=== PATIENT | male | born 1980 | race Two or more races ===

== ENCOUNTER → 2017-06-19 | Outpatient (CLI) | payer OTHER ==
--- NOTE | 2017-06-19 18:10 | US ---
EXAMINATION TYPE: US thyroid st tissue head/neck DATE OF EXAM: 06/19/2017 COMPARISON: NONE CLINICAL HISTORY: E04.9 Nontoxic Goiter. Pt stats Dr may have felt thyroid enlargement GLAND SIZE: Right Lobe: 5.2 x 2.0 x 1.6 cm Overall Parenchyma: homogenous Left Lobe: 4.4 x 1.5 x 1.6 cm Overall Parenchyma: homogeneous Isthmus Thickness: 0.2 cm Thyroid appeared wnl, small lymph nodes bilateral lateral neck. IMPRESSION: Right thyroid lobe is larger than the left. No discrete solid or cystic mass. No dominant mass.
--- NOTE | 2017-06-19 18:56 | XR ---
EXAMINATION TYPE: XR knee complete RT DATE OF EXAM: 06/19/2017 COMPARISON: NONE HISTORY: Knee pain TECHNIQUE: 3 views FINDINGS: I see no fracture nor dislocation. Joint spaces are normal. There is no sign of any joint e ffusion. IMPRESSION: Negative right knee exam.
--- NOTE | 2017-06-19 18:57 | XR ---
EXAMINATION TYPE: XR lumbar spine 2 or 3V DATE OF EXAM: 06/19/2017 COMPARISON: NONE HISTORY: Back pain TECHNIQUE: 3 views FINDINGS: I see no fracture nor dislocation. Lumbar vertebra have normal alignment. Disc spaces overa ll are fairly normal. There is narrowing at L5-S1 disc space. Sacroiliac joints appear normal. 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 IMPRESSION: There is some spondylosis at L5-S1. No fracture.
== END | disposition home or self-care (01) ==
LOC: RADUSWWP 16:52
PROVIDERS: ATTEND Family Medicine
DX: M47.817 Spondylosis without myelopathy or radiculopathy, lumbosacral region (principal); E04.9 Nontoxic goiter, unspecified; M25.561 Pain in right knee; Z82.49 Family history of ischemic heart disease and other diseases of the circulatory system
CPT/HCPCS: 72100; 76536; 93005

== ENCOUNTER → 2019-01-14 | Outpatient (CLI) | payer OTHER ==
--- NOTE | 2019-01-14 22:50 | XR ---
EXAMINATION TYPE: XR chest 2V DATE OF EXAM: 01/14/2019 COMPARISON: NONE HISTORY: Cough and bronchitis for 2 weeks. TECHNIQUE: Frontal and lateral views of the chest are obtained. FINDINGS: There is no focal air space opacity, pleural effusion, or pneumothorax seen. The cardiac silhouette size is within normal limits. The osseous structures are intact. IMPRESSION: No suspicious acute pulmonary process.
== END | disposition home or self-care (01) ==
LOC: RADXRMAIN 14:28
PROVIDERS: ATTEND Family Medicine
DX: R05 Cough (principal)
CPT/HCPCS: 71046

== ENCOUNTER 2019-06-21 13:21 | Inpatient (IN) | payer OTHER ==
[2019-06-21] MEDS ORDERED: ACETAMINOPHEN TAB 325 MG TAB PO STA ×2 (13:28→13:53)
--- NOTE | 2019-06-21 13:51 | XR ---
EXAMINATION TYPE: XR chest 2V DATE OF EXAM: 06/21/2019 HISTORY: fever, cough. REFERENCE: Previous study dated 01/14/2019. FINDINGS: There is a vague infiltrate in the right middle lobe. This may represent a developing pneum onia. The left lung is clear. Pleural space are clear. The heart is not enlarged. IMPRESSION: DEVELOPING RIGHT MIDDLE LOBE INFILTRATE.
[2019-06-21] MEDS ORDERED: cefTRIAXone IN SWFI 1,000 MG/10 ML SYRINGE IVP STA (13:58)
[2019-06-21] MEDS ORDERED: NALOXONE 0.4 MG/ML 1 ML VIAL IV PRN (14:04)
[2019-06-21] MEDS ORDERED: VANCOMYCIN IV PER PHARMACY 1 EACH MISC MISCELLANE PRN (14:04)
[2019-06-21] MEDS ORDERED: SODIUM CHLORIDE 0.9% 2,000 ML IV ONE (14:06)
[2019-06-21] MEDS ORDERED: VANCOMYCIN 1,500 MG in SODIUM CHLORIDE 0.9% 250 ML IVPB STA (14:10)
[2019-06-21] MEDS ORDERED: AZITHROMYCIN 500 MG in SODIUM CHLORIDE 0.9% 250 ML IVPB STA (14:17)
--- NOTE | 2019-06-21 14:20 | ED ---
Fever HPI - General Source: patient Mode of arrival: ambulatory Limitations: no limitations <Santa Landaverde - Last Filed: 06/21/19 15:06> <Addie Duran - Last Filed: 06/22/19 23:39> - General Chief Complaint: Fever Stated Complaint: body aches, fever Time Seen by Provider: 06/21/19 13:27 - History of Present Illness Initial Comments: 39-year-old male with past medical history presenting today for chief complaint of cough fever and body aches. Patient states that his is currently being admitted for multilobar pneumonia. Patient states he has had symptoms since Sunday. He states he feels acutely is getting worse not better. Patient states his cough has been progressively getting worse he states he does not really have shortness of breath he denies any chest pain like swelling he states he has occasional headache denies any neck stiffness or photophobia. Patient denies any nausea vomiting diarrhea abdominal pain. Patient denies any rashes. Patient denies any other complaints. Denies history of splenectomy. (Santa Landaverde) - Related Data Home Medications Medication Instructions Recorded Confirmed No Known Home Medications 06/21/19 06/21/19 Allergies Allergy/AdvReac Type Severity Reaction Status Date / Time No Known Allergies Allergy Verified 06/21/19 14:42 Review of Systems ROS Other: All systems not noted in ROS Statement are negative. <Santa Landaverde - Last Filed: 06/21/19 15:06> ROS Other: All systems not noted in ROS Statement are negative. <Addie Duran - Last Filed: 06/22/19 23:39> ROS Statement: Those systems with pertinent positive or pertinent negative responses have been documented in the HPI. Past Medical History Past Medical History: No Reported History History of Any Multi-Drug Resistant Organisms: None Reported Past Surgical History: No Surgical Hx Reported Past Psychological History: No Psychological Hx Reported Smoking Status: Current every day smoker Past Alcohol Use History: Occasional Past Drug Use History: None Reported <Santa Landaverde - Last Filed: 06/21/19 15:06> General Exam Limitations: no limitations <Santa Landaverde - Last Filed: 06/21/19 15:06> - General Exam Comments Initial Comments: General: The patient is awake and alert, in no distress Eye: +3 mm pupils are equal, round and reactive to light, extra-ocular movements are intact. No nystagmus. There is normal conjunctiva bilaterally. No signs of icterus. No photophobia Ears, nose, mouth and throat: There are moist mucous membranes and no oral lesions. Oropharynx was not erythematous there is no tonsillar enlargement exudates or lesions. Uvula midline. Tympanic membranes are not erythematous or is no effusions bulging or retraction. No tenderness to palpation of the mastoid. No anterior cervical lymphadenopathy. Rhinorrhea, clear and bilateral nares. No tripoding, no drooling. Neck: The neck is supple, there is no tenderness or JVD. No nuchal rigidity Cardiovascular: There is a regular rate and rhythm. No murmur, rub or gallop is appreciated. Respiratory: Lungs are clear to auscultation, respirations are non-labored, breath sounds are equal. No wheezes, stridor, rales, or rhonchi. No retractions or abdominal breathing. Gastrointestinal: Soft, non-distended, non-tender abdomen without masses or organomegaly noted. There is no rebound or guarding present. Bowel sounds are unremarkable. Musculoskeletal: Normal ROM, no tenderness. Strength 5/5. Sensation intact. Radial pulses equal bilaterally 2+. Neurological: A&O x 3. CN II-XII intact grossly, There are no obvious motor or sensory deficits. Coordination appears grossly intact. Speech appears normal, no muffling. Skin: Skin is warm and dry and no rashes or lesions are noted. No extremity edema Psychiatric: Cooperative (Santa Landaverde) Course Vital Signs 06/21/19 06/21/19 06/21/19 13:23 13:44 13:45 Temperature 98.5 F Pulse Rate 104 H Respiratory 18 16 18 Rate Blood Pressure 119/73 O2 Sat by Pulse 98 Oximetry 06/21/19 14:30 Temperature 99.9 F H Pulse Rate 92 Respiratory 16 Rate Blood Pressure 108/73 O2 Sat by Pulse 95 Oximetry Medical Decision Making - Lab Data Result diagrams: 06/21/19 14:25 06/21/19 14:25 <Santa Landaverde - Last Filed: 06/21/19 15:06> - Lab Data Result diagrams: 06/22/19 05:32 06/22/19 05:32 <Addie Duran - Last Filed: 06/22/19 23:39> - Medical Decision Making 39-year-old male presenting today for chief complaint of cough, fevers, body aches, Influenza A +. With right middle lobe infiltrate on CXR. Patient arrives with elevated heart rate but does not appear toxic. Blood cultures pending. Patient's laboratory studies reveal no leukocytosis, mild decrease platlets which may reflex viral nature of disease. Patient does not appear nor complain of shortness of breath. Patient given rocephin, azithromycin and vancomycin in ER. Further antibiotics regime to be determined by the admitting provider, who spoke with Dr. Duran. (Santa Landaverde) I was available for consultation in the emergency department. The history and physical exam were done by the midlevel provider. I was consulted for this patients care. I reviewed the case with the midlevel provider and based on their presentation of the patient, I agree with the assessment, medical decision making and plan of care as documented. I evaluated the patient myself and agree to hospital admission given patient is influenza A positive with pneumonia Chart was dictated using Trun[employer] dictation software. Attempts were made to myrna ect any dictation errors however some typographical errors may persist. (Addie Duran) - Lab Data Lab Results 06/21/19 06/21/19 06/21/19 Range/Units 13:40 14:25 14:25 WBC 5.3 (3.8-10.6) k/uL RBC 4.13 L (4.30-5.90) m/uL Hgb 13.8 (13.0-17.5) gm/dL Hct 41.6 (39.0-53.0) % MCV 100.7 H (80.0-100.0) fL MCH 33.4 (25.0-35.0) pg MCHC 33.2 (31.0-37.0) g/dL RDW 12.3 (11.5-15.5) % Plt Count 146 L (150-450) k/uL Neutrophils % 63 % Lymphocytes % 28 % Monocytes % 5 % Eosinophils % 3 % Basophils % 0 % Neutrophils # 3.3 (1.3-7.7) k/uL Lymphocytes # 1.5 (1.0-4.8) k/uL Monocytes # 0.3 (0-1.0) k/uL Eosinophils # 0.1 (0-0.7) k/uL Basophils # 0.0 (0-0.2) k/uL Sodium 136 L (137-145) mmol/L Potassium 4.1 (3.5-5.1) mmol/L Chloride 105 (98-107) mmol/L Carbon Dioxide 23 (22-30) mmol/L Anion Gap 8 mmol/L BUN 14 (9-20) mg/dL Creatinine 0.66 (0.66-1.25) mg/dL Est GFR (CKD-EPI)AfAm >90 (>60 ml/min/1.73 sqM) Est GFR (CKD-EPI)NonAf >90 (>60 ml/min/1.73 sqM) Glucose 95 (74-99) mg/dL Plasma Lactic Acid Zen (0.7-2.0) mmol/L Calcium 9.0 (8.4-10.2) mg/dL Total Bilirubin 0.4 (0.2-1.3) mg/dL AST 24 (17-59) U/L ALT 27 (4-49) U/L Alkaline Phosphatase 52 (38-126) U/L Total Protein 7.0 (6.3-8.2) g/dL Albumin 4.3 (3.5-5.0) g/dL Influenza Type A RNA Detected H (Not Detectd) Influenza Type B (PCR) Not Detected (Not Detectd) 06/21/19 Range/Units 14:25 WBC (3.8-10.6) k/uL RBC (4.30-5.90) m/uL Hgb (13.0-17.5) gm/dL Hct (39.0-53.0) % MCV (80.0-100.0) fL MCH (25.0-35.0) pg MCHC (31.0-37.0) g/dL RDW (11.5-15.5) % Plt Count (150-450) k/uL Neutrophils % % Lymphocytes % % Monocytes % % Eosinophils % % Basophils % % Neutrophils # (1.3-7.7) k/uL Lymphocytes # (1.0-4.8) k/uL Monocytes # (0-1.0) k/uL Eosinophils # (0-0.7) k/uL Basophils # (0-0.2) k/uL Sodium (137-145) mmol/L Potassium (3.5-5.1) mmol/L Chloride (98-107) mmol/L Carbon Dioxide (22-30) mmol/L Anion Gap mmol/L BUN (9-20) mg/dL Creatinine (0.66-1.25) mg/dL Est GFR (CKD-EPI)AfAm (>60 ml/min/1.73 sqM) Est GFR (CKD-EPI)NonAf (>60 ml/min/1.73 sqM) Glucose (74-99) mg/dL Plasma Lactic Acid Zen 0.7 (0.7-2.0) mmol/L Calcium (8.4-10.2) mg/dL Total Bilirubin (0.2-1.3) mg/dL AST (17-59) U/L ALT (4-49) U/L Alkaline Phosphatase (38-126) U/L Total Protein (6.3-8.2) g/dL Albumin (3.5-5.0) g/dL Influenza Type A RNA (Not Detectd) Influenza Type B (PCR) (Not Detectd) Disposition Is patient prescribed a controlled substance at d/c from ED?: No Time of Disposition: 14:30 <Santa Landaverde - Last Filed: 06/21/19 15:06> <Addie Duran - Last Filed: 06/22/19 23:39> Clinical Impression: Influenza A, Pneumonia Disposition: ADMITTED IP TO THIS HOSP Condition: Stable
[2019-06-21 14:42] LABS: Basophils % (A) 0 %; Eosinophils # (A) 0.1 k/uL (0-0.7); Eosinophils % (A) 3 %; HCT 41.6 % (39.0-53.0); HGB 13.8 gm/dL (13.0-17.5); Lymphocytes # (A) 1.5 k/uL (1.0-4.8); Lymphocytes % (A) 28 %; MCH 33.4 pg (25.0-35.0); MCHC 33.2 g/dL (31.0-37.0); MCV 100.7 fL (80.0-100.0); Mean Platelet Volume 8.1; Monocytes # (A) 0.3 k/uL (0-1.0); Monocytes % (A) 5 %; Neutrophils # (A) 3.3 k/uL (1.3-7.7); Neutrophils % (A) 63 %; Platelet Count 146 k/uL (150-450); RBC 4.13 m/uL (4.30-5.90); RDW 12.3 % (11.5-15.5); WBC 5.3 k/uL (3.8-10.6)
[2019-06-21 14:50] LABS: ALT 27 U/L (4-49); AST 24 U/L (17-59); African American GFR (CKD) >90 (>60 ml/min/1.73 sqM); Albumin 4.3 g/dL (3.5-5.0); Alkaline Phosphatase 52 U/L (38-126); Anion Gap 8 mmol/L; Blood Urea Nitrogen 14 mg/dL (9-20); Carbon Dioxide 23 mmol/L (22-30); Chloride 105 mmol/L (98-107); Glucose 95 mg/dL (74-99); Non-African American GFR(CKD) >90 (>60 ml/min/1.73 sqM); Potassium 4.1 mmol/L (3.5-5.1); Sodium 136 mmol/L (137-145); Total Bilirubin 0.4 mg/dL (0.2-1.3)
[2019-06-21] MEDS ORDERED: SODIUM CHLORIDE 0.9% 500 ML 500 ML IV ONE (15:20)
--- NOTE | 2019-06-21 16:42 | P.HPIM ---
History of Present Illness This is a pleasant 39 years old male with no significant past medical history. His patient of Dr. Giles, he presents with dry coughing with some dyspnea , associated with right side lower chest pain on coughing only felt like sharp, no other chest pain , no fever or malaise he smokes about 1/2 PPD , with no alcohol or illicit drugs Patient has fever of 99.9, as her vitals looks stable, Showing normal seal 5.3K, platelets 146, with 15.8, influenza A is positive. Chest x-ray showed right middle lobe infiltrate In the emergency room he was started on vancomycin and Zithromax and ceftriaxone, he was started on normal saline at 100 mL per hour B/2.5 L given as below Review of Systems CONSTITUTIONAL: No fever, no malaise, no fatigue. HEENT: No recent visual problems or hearing problems. Denied any sore throat. CARDIOVASCULAR: No orthopnea, PND, no palpitations, no syncope. PULMONARY: no hemoptysis. GASTROINTESTINAL: No diarrhea, no nausea, no vomiting, no abdominal pain. Normoactive bowel sounds. NEUROLOGICAL: No headaches, no weakness, no numbness. HEMATOLOGICAL: Denies any bleeding or petechiae. GENITOURINARY: Denies any burning micturition, frequency, or urgency. MUSCULOSKELETAL/RHEUMATOLOGICAL: Denies any joint pain, swelling, or any muscle pain. ENDOCRINE: Denies any polyuria or polydipsia. Past Medical History Past Medical History: No Reported History History of Any Multi-Drug Resistant Organisms: None Reported Past Surgical History: No Surgical Hx Reported Past Psychological History: No Psychological Hx Reported Smoking Status: Current every day smoker Past Alcohol Use History: Occasional Past Drug Use History: None Reported - Past Family History Father Family Medical History: Myocardial Infarction ([place]) Additional Family Medical History / Comment(s): 2016 from [place] Mother History Unknown: Yes Additional Family Medical History / Comment(s): heart issues Medications and Allergies Home Medications Medication Instructions Recorded Confirmed Type No Known Home Medications 06/21/19 06/21/19 History Allergies Allergy/AdvReac Type Severity Reaction Status Date / Time No Known Allergies Allergy Verified 06/21/19 14:42 Physical Exam Vitals: Vital Signs Temp Pulse Resp BP Pulse Ox 06/21/19 14:30 99.9 F H 92 16 108/73 95 06/21/19 13:45 18 06/21/19 13:44 16 06/21/19 13:23 98.5 F 104 H 18 119/73 98 Intake and Output 06/20/19 06/21/19 06/21/19 22:59 06:59 14:59 Other: Weight 79.379 kg GENERAL: The patient is alert and oriented x3, not in any acute distress. Well developed, well nourished. HEENT: Pupils are round and equally reacting to light. EOMI. No scleral icterus. No conjunctival pallor. Normocephalic, atraumatic. No pharyngeal erythema. No thyromegaly. CARDIOVASCULAR: S1 and S2 present. No murmurs, rubs, or gallops. PULMONARY: Chest is clear to auscultation, no wheezing or crackles. ABDOMEN: Soft, nontender, nondistended, normoactive bowel sounds. No palpable organomegaly. MUSCULOSKELETAL: No joint swelling or deformity. EXTREMITIES: No cyanosis, clubbing, or pedal edema. NEUROLOGICAL: Gross neurological examination did not reveal any focal deficits. SKIN: No rashes. Results CBC & Chem 7: 06/21/19 14:25 06/21/19 14:25 Labs: Abnormal Lab Results - Last 24 Hours (Table) 06/21/19 Range/Units 13:40 Influenza Type A RNA Detected H (Not Detectd) Assessment and Plan Assessment: Acute influenza infection Right middle lobe community acquired pneumonia Dehydration Plan: This is a pleasant 39 years old male who presents with influenza and right pneumonia. Continue with antibiotics with Rocephin and Zithromax, continue with Tamiflu, continue with bronchodilator. Pulmonary consult Labs and medication were reviewed.. Continue same treatment. Continue with symptomatic treatment. Resume home medication. Monitor lytes and vitals. DVT and GI prophylaxis. Further recommendations of the clinical course of the patient DVT prophylaxis: Subcutaneous heparin GI Prophylaxis: Pepcid PT/OT: Pending Prognosis is guarded
[2019-06-21] MEDS: SODIUM CHLORIDE 0.9% 1,000 ML IV SCH (17:02)
[2019-06-21] MEDS ORDERED: IBUPROFEN 600 MG TAB PO PRN (17:45)
[2019-06-21] MEDS: FAMOTIDINE 20 MG/2 ML VIAL IV SCH (20:08)
[2019-06-21] MEDS: HEPARIN SODIUM,PORCINE 5,000 UNIT/ML 1 ML VIAL SQ SCH (20:08)
[2019-06-21] MEDS ORDERED: IBUPROFEN 600 MG TAB PO SCH (22:00)
[2019-06-21] MEDS: VANCOMYCIN 1,500 MG in SODIUM CHLORIDE 0.9% 250 ML IVPB SCH (23:58)
[2019-06-22] MEDS: SODIUM CHLORIDE 0.9% 1,000 ML IV SCH ×3 (00:16→21:48)
[2019-06-22 06:11] LABS: Basophils % (A) 1 %; Eosinophils # (A) 0.1 k/uL (0-0.7); Eosinophils % (A) 3 %; HCT 41.3 % (39.0-53.0); HGB 13.5 gm/dL (13.0-17.5); Lymphocytes # (A) 1.7 k/uL (1.0-4.8); Lymphocytes % (A) 45 %; MCH 33.5 pg (25.0-35.0); MCHC 32.7 g/dL (31.0-37.0); MCV 102.6 fL (80.0-100.0); Macrocytosis Slight; Monocytes # (A) 0.2 k/uL (0-1.0); Monocytes % (A) 6 %; Neutrophils # (A) 1.6 k/uL (1.3-7.7); Neutrophils % (A) 42 %; Platelet Count 153 k/uL (150-450); RBC 4.02 m/uL (4.30-5.90); RDW 12.4 % (11.5-15.5); WBC 3.8 k/uL (3.8-10.6)
[2019-06-22 06:27] LABS: African American GFR (CKD) >90 (>60 ml/min/1.73 sqM); Anion Gap 5 mmol/L; Blood Urea Nitrogen 12 mg/dL (9-20); Calcium 8.2 mg/dL (8.4-10.2); Carbon Dioxide 23 mmol/L (22-30); Chloride 111 mmol/L (98-107); Glucose 108 mg/dL (74-99); Non-African American GFR(CKD) >90 (>60 ml/min/1.73 sqM); Potassium 4.2 mmol/L (3.5-5.1); Sodium 139 mmol/L (137-145)
[2019-06-22] MEDS: FAMOTIDINE 20 MG/2 ML VIAL IV SCH (08:22)
[2019-06-22] MEDS: HEPARIN SODIUM,PORCINE 5,000 UNIT/ML 1 ML VIAL SQ SCH ×2 (08:22→21:51)
[2019-06-22] MEDS: VANCOMYCIN 1,500 MG in SODIUM CHLORIDE 0.9% 250 ML IVPB SCH (08:23)
--- NOTE | 2019-06-22 11:57 | P.PN ---
Subjective This is a pleasant 39 years old male with no significant past medical history. His patient of Dr. Giles, he presents with dry coughing with some dyspnea , associated with right side lower chest pain on coughing only felt like sharp, no other chest pain , no fever or malaise he smokes about 1/2 PPD , with no alcohol or illicit drugs Patient has fever of 99.9, as her vitals looks stable, Showing normal seal 5.3K, platelets 146, with 15.8, influenza A is positive. Chest x-ray showed right middle lobe infiltrate In the emergency room he was started on vancomycin and Zithromax and ceftriaxone, he was started on normal saline at 100 mL per hour B/2.5 L given as below 06/22/2019 Patient is doing well with minimal symptoms, his cough and fatigue are significantly improved, no chest pain or dyspnea Hemodynamically stable, his CBC and BMP are unremarkable Patient remains on IV vancomycin with ID team on consult Objective - Vital Signs Vital signs: Vital Signs Temp 98.2 F 06/22/19 07:00 Pulse 84 06/22/19 07:00 Resp 18 06/22/19 07:00 BP 112/77 06/22/19 07:00 Pulse Ox 96 06/22/19 07:00 Intake & Output 06/21/19 06/22/19 06/22/19 18:59 06:59 18:59 Intake Total 20 Balance 20 Weight 79.379 kg Intake: Oral 20 Other: Voiding Method Toilet # Voids 1 - Exam GENERAL: The patient is alert and oriented x3, not in any acute distress. Well developed, well nourished. HEENT: Pupils are round and equally reacting to light. EOMI. No scleral icterus. No conjunctival pallor. Normocephalic, atraumatic. No pharyngeal erythema. No thyromegaly. CARDIOVASCULAR: S1 and S2 present. No murmurs, rubs, or gallops. PULMONARY: Chest is clear to auscultation, no wheezing or crackles. ABDOMEN: Soft, nontender, nondistended, normoactive bowel sounds. No palpable organomegaly. MUSCULOSKELETAL: No joint swelling or deformity. EXTREMITIES: No cyanosis, clubbing, or pedal edema. NEUROLOGICAL: Gross neurological examination did not reveal any focal deficits. SKIN: No rashes. no petechiae. - Labs CBC & Chem 7: 06/22/19 05:32 06/22/19 05:32 Labs: Abnormal Lab Results - Last 24 Hours (Table) 06/21/19 06/21/19 06/21/19 Range/Units 13:40 14:25 14:25 RBC 4.13 L (4.30-5.90) m/uL MCV 100.7 H (80.0-100.0) fL Plt Count 146 L (150-450) k/uL Sodium 136 L (137-145) mmol/L Chloride (98-107) mmol/L Glucose (74-99) mg/dL Calcium (8.4-10.2) mg/dL Influenza Type A RNA Detected H (Not Detectd) 06/22/19 06/22/19 Range/Units 05:32 05:32 RBC 4.02 L (4.30-5.90) m/uL MCV 102.6 H (80.0-100.0) fL Plt Count (150-450) k/uL Sodium (137-145) mmol/L Chloride 111 H (98-107) mmol/L Glucose 108 H (74-99) mg/dL Calcium 8.2 L (8.4-10.2) mg/dL Influenza Type A RNA (Not Detectd)
[2019-06-22] MEDS: AZITHROMYCIN 250 MG TAB PO SCH (15:33)
[2019-06-22] MEDS: FAMOTIDINE 20 MG TAB PO SCH (21:51)
--- NOTE | 2019-06-22 22:25 | P.CONS ---
History of Present Illness - Reason for Consult Consult date: 06/22/19 flu and pneumonia Requesting physician: Syd E Sheet - Chief Complaint cough and body aches x 3 days - History of Present Illness Patient is 39-year male presenting to the ER at [facility] with chief complaints of fever and cough along with body aches patient symptoms started on Sunday that is 3 days prior to presentation to hospital started with weakness generalized body aches he did have some sore throat also with shortness of breath and a cough which has been mild to moderate intensity with occasional sputum production denies significant pleuritic chest pain he did have fever and chills although did not wish temperature denies having nausea no vomiting no choking on food no abdominal pain no diarrhea with the symptom the patient presented to hospital on arrival to the ER patient had temperature of 99.9 patient white count was normal liver enzymes normal influenza A positive patient also have a chest x-ray which shows developing right middle lobe infiltrate patient was started on Rocephin and Zithromax vancomycin was added patient has been admitted to the hospital infectious disease was consulted for further recommendation about antibiotic therapy Review of Systems positive point has been mentioned in HPI rest of the systems are negative. Past Medical History Past Medical History: No Reported History History of Any Multi-Drug Resistant Organisms: None Reported Past Surgical History: No Surgical Hx Reported Additional Past Surgical History / Comment(s): hernia surgery as a child Past Anesthesia/Blood Transfusion Reactions: No Reported Reaction Past Psychological History: No Psychological Hx Reported Smoking Status: Current every day smoker Past Alcohol Use History: Occasional Past Drug Use History: None Reported - Past Family History Father Family Medical History: Myocardial Infarction ([place]) Additional Family Medical History / Comment(s): 2016 from [place] Mother History Unknown: Yes Additional Family Medical History / Comment(s): heart issues Medications and Allergies Home Medications Medication Instructions Recorded Confirmed Type No Known Home Medications 06/21/19 06/21/19 History Allergies Allergy/AdvReac Type Severity Reaction Status Date / Time No Known Allergies Allergy Verified 06/21/19 14:42 Physical Exam Vitals: Vital Signs Temp Pulse Pulse Resp BP BP Pulse Ox 06/22/19 07:00 98.2 F 84 18 112/77 96 06/22/19 02:41 97.7 F 68 16 117/78 97 06/21/19 19:39 97.9 F 80 16 111/73 96 06/21/19 15:00 98.1 F 78 17 116/79 96 06/21/19 14:30 99.9 F H 92 16 108/73 95 06/21/19 13:45 18 06/21/19 13:44 16 06/21/19 13:23 98.5 F 104 H 18 119/73 98 Intake and Output 06/21/19 06/22/19 06/22/19 22:59 06:59 14:59 Intake Total 20 Balance 20 Intake: Oral 20 Other: Voiding Method Toilet Toilet # Voids 1 GENERAL DESCRIPTION: Middle-aged male lying in bed, no distress. No tachypnea or accessory muscle of respiration use. HEENT: Shows Pallor , no scleral icterus. Oral mucous membrane is dry. NECK: Trachea central, no thyromegaly. LUNGS: Unlabored breathing. Decreased breath sound at the base. No wheeze or crackle. HEART: S1, S2, regular rate and rhythm. ABDOMEN: Soft, no tenderness , guarding or rigidity EXTREMITIES: No edema of feet. SKIN: No rash, no masses palpable. NEUROLOGICAL: The patient is awake, alert, oriented x3, mood and affect normal. Results CBC & Chem 7: 06/22/19 05:32 06/22/19 05:32 Labs: Abnormal Lab Results - Last 24 Hours (Table) 06/21/19 06/21/19 06/21/19 Range/Units 13:40 14:25 14:25 RBC 4.13 L (4.30-5.90) m/uL MCV 100.7 H (80.0-100.0) fL Plt Count 146 L (150-450) k/uL Sodium 136 L (137-145) mmol/L Chloride (98-107) mmol/L Glucose (74-99) mg/dL Calcium (8.4-10.2) mg/dL Influenza Type A RNA Detected H (Not Detectd) 06/22/19 06/22/19 Range/Units 05:32 05:32 RBC 4.02 L (4.30-5.90) m/uL MCV 102.6 H (80.0-100.0) fL Plt Count (150-450) k/uL Sodium (137-145) mmol/L Chloride 111 H (98-107) mmol/L Glucose 108 H (74-99) mg/dL Calcium 8.2 L (8.4-10.2) mg/dL Influenza Type A RNA (Not Detectd) Assessment and Plan Assessment: patient presented hospital with generalized weakness body aches he did have a fever and a cough with sputum production, with influenza A PCR positive likely with acute influenza and evidence of secondary bacterial pneumonia right middle lobe likely community-acquired clinically doubt resistant gram-positive or gram-negative pathogen (1) Influenza A Current Visit: Yes Status: Acute Code(s): J10.1 - FLU DUE TO OTH IDENT INFLUENZA VIRUS W OTH RESP MANIFEST SNOMED Code(s): 718498275 (2) Pneumonia Current Visit: Yes Status: Acute Code(s): J18.9 - PNEUMONIA, UNSPECIFIED ORGANISM SNOMED Code(s): 241378059 Plan: 1-we will obtain a sputum for Gram stain and culture 2-Tamiflu 75 mg twice a day for 5 days 3-Rocephin 1 g daily and Zithromax 250 p.o. daily 4-discontinue the vancomycin We will follow on clinical condition and cultures to further adjust medication if needed Thank you for this consultation we will follow the patient along with you Time with Patient: Greater than 30
[2019-06-22] MEDS: OSELTAMIVIR 75 MG CAP PO SCH (22:49)
--- NOTE | 2019-06-23 06:41 | P.PN ---
Subjective This is a pleasant 39 years old male with no significant past medical history. His patient of Dr. Giles, he presents with dry coughing with some dyspnea , associated with right side lower chest pain on coughing only felt like sharp, no other chest pain , no fever or malaise he smokes about 1/2 PPD , with no alcohol or illicit drugs Patient has fever of 99.9, as her vitals looks stable, Showing normal seal 5.3K, platelets 146, with 15.8, influenza A is positive. Chest x-ray showed right middle lobe infiltrate In the emergency room he was started on vancomycin and Zithromax and ceftriaxone, he was started on normal saline at 100 mL per hour B/2.5 L given as below 06/22/2019 Patient is doing well with minimal symptoms, his cough and fatigue are significantly improved, no chest pain or dyspnea Hemodynamically stable, his CBC and BMP are unremarkable Patient remains on IV vancomycin with ID team on consult 06/23/2019 Patient lying in bed comfortable, no respiratory distress, mild coughing, no dyspnea or chest pain. Vitals stable, blood pressure 100/56, he remains on antibiotics with Tamiflu, ceftriaxone and Zithromax, infectious disease input is appreciated We going to repeat chest x-ray in the morning tomorrow for follow-up Objective - Vital Signs Vital signs: Vital Signs Temp 97.5 F L 06/23/19 02:11 Pulse 76 06/23/19 02:11 Resp 16 06/23/19 02:11 BP 100/56 06/23/19 02:11 Pulse Ox 95 06/23/19 02:11 Intake & Output 06/22/19 06/22/19 06/23/19 06:59 18:59 06:59 Intake Total 20 1100 1180 Balance 20 1100 1180 Intake: Intake, IV Titration 1100 Amount Sodium Chloride 0.9% 1, 750 000 ml @ 100 mls/hr IV . Q10H [facility] Rx#:[id number] Vancomycin 1,500 mg In 250 Sodium Chloride 0.9% 250 ml @ 125 mls/hr IVPB Q8H [facility] Rx#:[id number] cefTRIAXone 1 gm In 100 Sodium Chloride 0.9% 50 ml @ 100 mls/hr IVPB Q24HR [facility] Rx#:[id number] Oral 20 1180 Other: Voiding Method Toilet # Voids 1 1 2 - Exam GENERAL: The patient is alert and oriented x3, not in any acute distress. Well developed, well nourished. HEENT: Pupils are round and equally reacting to light. EOMI. No scleral icterus. No conjunctival pallor. Normocephalic, atraumatic. No pharyngeal erythema. No thyromegaly. CARDIOVASCULAR: S1 and S2 present. No murmurs, rubs, or gallops. PULMONARY: Chest is clear to auscultation, no wheezing or crackles. ABDOMEN: Soft, nontender, nondistended, normoactive bowel sounds. No palpable organomegaly. MUSCULOSKELETAL: No joint swelling or deformity. EXTREMITIES: No cyanosis, clubbing, or pedal edema. NEUROLOGICAL: Gross neurological examination did not reveal any focal deficits. SKIN: No rashes. no petechiae. - Labs CBC & Chem 7: 06/22/19 05:32 06/22/19 05:32 Labs: Microbiology - Last 24 Hours (Table) 06/21/19 14:25 Blood Culture - Preliminary Blood No Growth after 24 hours Assessment and Plan Assessment: Acute influenza infection Right middle lobe community acquired pneumonia Dehydration Plan: This is a pleasant 39 years old male who presents with influenza and right pneumonia. Continue with antibiotics with Rocephin and Zithromax, continue with Tamiflu, continue with bronchodilator. Follow-up recommendation by infectious disease team Labs and medication were reviewed.. Continue same treatment. Continue with symptomatic treatment. Resume home medication. Monitor lytes and vitals. DVT and GI prophylaxis. Further recommendations of the clinical course of the patient DVT prophylaxis: Subcutaneous heparin GI Prophylaxis: Pepcid PT/OT: Pending Prognosis is guarded
[2019-06-23] MEDS ORDERED: VANCOMYCIN TROUGH DUE 1 EACH MISC MISCELLANE ONE (07:00)
[2019-06-23 07:29] LABS: African American GFR (CKD) >90 (>60 ml/min/1.73 sqM); Anion Gap 7 mmol/L; Blood Urea Nitrogen 15 mg/dL (9-20); Calcium 8.7 mg/dL (8.4-10.2); Carbon Dioxide 23 mmol/L (22-30); Chloride 110 mmol/L (98-107); Glucose 100 mg/dL (74-99); Non-African American GFR(CKD) >90 (>60 ml/min/1.73 sqM); Potassium 4.4 mmol/L (3.5-5.1); Sodium 140 mmol/L (137-145)
[2019-06-23 07:51] LABS: Basophils % (A) 1 %; Eosinophils # (A) 0.1 k/uL (0-0.7); Eosinophils % (A) 4 %; HCT 42.2 % (39.0-53.0); HGB 13.7 gm/dL (13.0-17.5); Lymphocytes # (A) 1.8 k/uL (1.0-4.8); Lymphocytes % (A) 46 %; MCH 32.8 pg (25.0-35.0); MCHC 32.4 g/dL (31.0-37.0); Mean Platelet Volume 7.8; Monocytes # (A) 0.2 k/uL (0-1.0); Monocytes % (A) 5 %; Neutrophils # (A) 1.7 k/uL (1.3-7.7); Neutrophils % (A) 43 %; Platelet Count 175 k/uL (150-450); RBC 4.18 m/uL (4.30-5.90); RDW 12.3 % (11.5-15.5); WBC 3.9 k/uL (3.8-10.6)
[2019-06-23] MEDS: SODIUM CHLORIDE 0.9% 1,000 ML IV SCH ×3 (09:22→23:24)
[2019-06-23] MEDS: HEPARIN SODIUM,PORCINE 5,000 UNIT/ML 1 ML VIAL SQ SCH ×2 (09:31→20:24)
[2019-06-23] MEDS: FAMOTIDINE 20 MG TAB PO SCH ×2 (09:32→20:25)
[2019-06-23] MEDS: AZITHROMYCIN 250 MG TAB PO SCH (09:32)
[2019-06-23] MEDS: OSELTAMIVIR 75 MG CAP PO SCH ×2 (09:32→20:25)
--- NOTE | 2019-06-23 12:06 | PN ---
PROGRESS NOTE DATE OF SERVICE: 06/23/2019. REASON FOR FOLLOWUP: 1. Acute influenza. 2. Pneumonia. INTERVAL HISTORY: The patient is currently afebrile, has been breathing comfortably. The patient's cough had decreased in intensity. No nausea, no vomiting. No abdominal pain, no diarrhea. PHYSICAL EXAMINATION: Blood pressure 117/75 with a pulse of 59 temperature 97.6. He is 98% on room air. General description is a middle-aged male lying in bed in no distress. RESPIRATORY SYSTEM: Unlabored breathing, decreased breath sounds in the base, no wheeze. HEART: S1, S2. Regular rate and rhythm. ABDOMEN: Soft, no tenderness. LABS: Hemoglobin is 13.1, white count 3.9, creatinine 0.71. Procalcitonin 0.07. DIAGNOSTIC IMPRESSION AND PLAN: 1. Patient with acute influenza A for which the patient is continued on the Tamiflu to finish a 5-day course of therapy. 2. Patient with right lower lobe pneumonia, community acquired. Overall improvement on Rocephin, to finish therapy with short course of oral Ceftin 500 mg twice a day for about a week and a close outpatient followup. MMODL / IJN: [id number] /
[2019-06-24 07:52] LABS: Basophils % (A) 0 %; Eosinophils # (A) 0.2 k/uL (0-0.7); Eosinophils % (A) 4 %; HCT 43.2 % (39.0-53.0); HGB 14.4 gm/dL (13.0-17.5); Lymphocytes # (A) 2.1 k/uL (1.0-4.8); Lymphocytes % (A) 44 %; MCH 33.4 pg (25.0-35.0); MCHC 33.4 g/dL (31.0-37.0); MCV 100.1 fL (80.0-100.0); Monocytes # (A) 0.2 k/uL (0-1.0); Monocytes % (A) 4 %; Neutrophils # (A) 2.1 k/uL (1.3-7.7); Neutrophils % (A) 46 %; Platelet Count 197 k/uL (150-450); RBC 4.32 m/uL (4.30-5.90); RDW 12.3 % (11.5-15.5); WBC 4.7 k/uL (3.8-10.6)
[2019-06-24 07:54] VITALS: BP 127/73; PULSE 83; RESP 18; TEMP 97.7
[2019-06-24 08:02] LABS: African American GFR (CKD) >90 (>60 ml/min/1.73 sqM); Anion Gap 8 mmol/L; Blood Urea Nitrogen 19 mg/dL (9-20); Calcium 9.4 mg/dL (8.4-10.2); Carbon Dioxide 27 mmol/L (22-30); Chloride 106 mmol/L (98-107); Glucose 105 mg/dL (74-99); Non-African American GFR(CKD) >90 (>60 ml/min/1.73 sqM); Potassium 4.5 mmol/L (3.5-5.1); Sodium 141 mmol/L (137-145)
[2019-06-24] MEDS: OSELTAMIVIR 75 MG CAP PO SCH (08:28)
[2019-06-24] MEDS: FAMOTIDINE 20 MG TAB PO SCH (08:28)
[2019-06-24] MEDS: HEPARIN SODIUM,PORCINE 5,000 UNIT/ML 1 ML VIAL SQ SCH (08:28)
[2019-06-24] MEDS: AZITHROMYCIN 250 MG TAB PO SCH (08:28)
--- NOTE | 2019-06-24 15:09 | PN ---
PROGRESS NOTE DATE OF SERVICE: 06/24/2019 REASON FOR FOLLOWUP: 1. Acute influenza. 2. Question of possible pneumonia. INTERVAL HISTORY: The patient is currently afebrile. The patient has been breathing comfortably. The patient denies having any chest pain or shortness of breath. Minimal cough. No nausea. No vomiting. No abdominal pain. No diarrhea. PHYSICAL EXAMINATION: Blood pressure 127/73 with a pulse of 82, temperature 97.7, he is 96% on room air. General description is a middle-aged male up in the bed in no distress. RESPIRATORY SYSTEM: Unlabored breathing. Decreased intensity of breath sounds. No wheeze. HEART: S1, S2. Regular rate and rhythm. ABDOMEN: Soft. No tenderness. LABS: Hemoglobin is 14.4, white count 4.7. BUN of 19, creatinine 0.87. Procalcitonin was 0.07. DIAGNOSTIC IMPRESSION AND PLAN: 1. Patient with acute influenza. 2. Suspicion for underlying pneumonia less likely . Patient to finish therapy with oral Tamiflu and short course of Ceftin. Monitor clinical course closely. MMODL / IJN: [id number] /
--- NOTE | 2019-06-25 08:21 | DS ---
DISCHARGE SUMMARY DATE OF ADMISSION: 06/21/2019 DATE OF DISCHARGE: 06/24/2019 FINAL DIAGNOSES: 1. Acute influenza A pneumonitis. 2. Possible secondary bacterial pneumonia. HOSPITAL COURSE: This pleasant gentleman presented to the hospital with cough, fever, body aches. is also admitted to the hospital with similar symptoms. Not getting better. Came out positive for influenza A. Chest x-ray showed infiltrate. Patient was treated with IV ceftriaxone, initial vancomycin, then azithromycin and Tamiflu. Today doing much better. Afebrile, up and about. Respiratory symptoms greatly improved. PHYSICAL EXAMINATION: Temperature 97.7, pulse 83, respiratory rate 18, blood pressure 127/73, pulse ox 96% on room air. LUNGS: Fair entry. CARDIOVASCULAR: First and second sounds normal. INVESTIGATIONS: White count 4.7, hemoglobin 14.4, creatinine 0.87. CONSULTATION: Dr. Kern from [place]. DISCHARGE MEDICATIONS: 1. Zithromax 250 mg daily for 3 days. 2. Tamiflu 750 mg q.12 for 5 days. Return to work on 06/23/2019. FOLLOW UP: Follow up with Dr. Giles on 07/02/2019, follow up with Dr. Chen on 07/07/2019. MMODL / IJN: [id number] /
== END 2019-06-24 15:37 | disposition home or self-care (01) | DRG 195 ==
LOC: EC 13:21 → 4SSUR 14:34 → OBSVTOIN 06-23 09:20
PROVIDERS: ADMIT Hospitalist; ATTEND Hospitalist
DX: J10.08 Influenza due to other identified influenza virus with other specified pneumonia (principal); E86.0 Dehydration; F17.210 Nicotine dependence, cigarettes, uncomplicated; Z82.49 Family history of ischemic heart disease and other diseases of the circulatory system; J15.9 Unspecified bacterial pneumonia
CPT/HCPCS: 36415; 71046; 80048; 80053; 80202; 83605; 84145; 85025; 87040; 87502; 96361; 96374; 99284